=== PATIENT | male | born 1945 | race Caucasian/White ===

== ENCOUNTER 2017-07-11 11:06 | Outpatient (CLI) | payer MEDICARE, BC ==
[~2017-07-11 11:06] MED LIST: ALLO100T25 PO; CALC-855 PO; CALC0.5C2 PO; CHOL3000 PO; CYAN100070 SQ; DAPT500V2 IV; DULO-31 PO; FLAX100031 PO; FLO0.4C PO; FOLI-43 PO; GLUC-133 PO; LIDO1.8C TOP; LIDO700A32; LIDOCAINE; LIPA1CAP18 PO; LORA-641 PO; MIDO10TA PO; MULT-1074 PO; MYCO360T PO; OMEP-84 PO; OXYC-658 PO; PRED10TA PO; QUELT PO; ROPI0.253 PO; SOLI5TAB2 PO; TEST200V10 IM
== END 2017-07-11 23:59 | disposition home or self-care (01) ==
LOC: RAD 11:06
PROVIDERS: ATTEND Family Medicine
DX: N40.1 Benign prostatic hyperplasia with lower urinary tract symptoms (principal); R50.9 Fever, unspecified; N18.9 Chronic kidney disease, unspecified; Z87.891 Personal history of nicotine dependence
CPT/HCPCS: 76856

== ENCOUNTER 2018-11-12 13:49 | Inpatient (IN) | payer MEDICARE, BC ==
[~2018-11-12] VITALS: Ht 172.7 cm; Wt 78.5 kg
[~2018-11-12 13:49] MED LIST changes: +DEXTROSE 5% IV SCH; -ROPI0.253 PO; +ROPI0.2534 PO; +SODIUM BICARBONATE IV SCH; +WATER IV SCH
[2018-11-12] MEDS ORDERED: normal saline 1000ml 1,000 ML IV SCH (15:27)
[2018-11-12] MEDS ORDERED: magnesium Cl slow-release 64mg tablet PO PRN (15:30)
[2018-11-12] MEDS ORDERED: linezolid 600mg/300ml PREMIX 300 ML IV SCH ×4 (15:30→20:00)
[2018-11-12] MEDS ORDERED: bisacodyl 10mg suppository rectal RC PRN (15:30)
[2018-11-12] MEDS ORDERED: HYDROcodone/acetaminophen 5mg/325mg tablet PO PRN (15:30)
[2018-11-12] MEDS ORDERED: acetaminophen 325mg tablet PO PRN (15:30)
[2018-11-12] MEDS ORDERED: magnesium 4gm in 100ml NS 100 ML IV PRN (15:30)
[2018-11-12] MEDS ORDERED: magnesium hydroxide 30ml (MOM) UD suspension PO PRN (15:30)
[2018-11-12] MEDS ORDERED: mag hydrox/Alum hydrox/simeth 30ml oral suspension PO PRN (15:30)
[2018-11-12] MEDS ORDERED: ondansetron/PF 4mg/2ml inj IV PRN (15:30)
[2018-11-12] MEDS ORDERED: potassium Cl 40MEQ/NS 500ml 500 ML IV PRN (15:30)
[2018-11-12] MEDS ORDERED: potassium Cl 20 mEq SR tablet PO PRN ×2 (15:30)
[2018-11-12] MEDS ORDERED: diphenhydrAMINE 25mg capsule PO PRN (15:30)
[2018-11-12] MEDS ORDERED: magnesium 2GM in 50ml NS 50 ML IV PRN (15:30)
--- NOTE | 2018-11-12 15:49 | NUR ---
Dr. Cota to see patient
[2018-11-12 16:41] LABS: ALANINE AMINOTRANSFERASE 31 U/L (12-78); ALBUMIN 2.9 G/DL (3.4-5.0); ALBUMIN/GLOBULIN RATIO 0.7 (1.1-1.5); ALKALINE PHOSPHATASE 100 IU/L (46-116); ANION GAP 17 (8-16); ASPARTATE AMINO TRANSFERASE 24 U/L (10-37); BILIRUBIN,TOTAL 1.1 MG/DL (0.1-1.0); BLOOD UREA NITROGEN 90 MG/DL (7-18); BUN/CREATININE RATIO 14.3 (5.4-32.0); CALCIUM 8.5 MG/DL (8.5-10.1); CHLORIDE 92 MMOL/L (99-107); CREATININE 6.29 MG/DL (0.60-1.10); GLUCOSE 104 MG/DL (70-104); PHOSPHORUS 3.1 MG/DL (2.3-4.5); POTASSIUM 3.1 MMOL/L (3.5-5.1); SODIUM 126 MMOL/L (135-145); TOTAL CARBON DIOXIDE 17.2 MMOL/L (24-32); TOTAL PROTEIN 7.2 G/DL (6.4-8.2); eGFR 9 ML/MIN
[2018-11-12 16:44] LABS: HEMOGLOBIN A1C 4.7 % (4.5-6.2)
[2018-11-12 16:58] LABS: PARTIAL THROMBOPLASTIN TIME 31 SECONDS (22-32)
[2018-11-12 17:26] LABS: BASOPHILS % (AUTO) 0.1 % (0-1); EOSINOPHILS % (AUTO) 0.4 % (0-6); HEMATOCRIT 28.3 % (42.0-52.0); HEMOGLOBIN 9.5 g/dl (14.0-17.9); LYMPHOCYTES # (AUTO) 0.2 X10'3 (1.1-4.8); LYMPHOCYTES % (AUTO) 2.1 % (21-51); MEAN CORPUSCULAR HEMOGLOBIN 29.2 PG (27.0-31.0); MEAN CORPUSCULAR HGB CONC 33.5 g/dL (33.0-36.5); MEAN CORPUSCULAR VOLUME 87.4 FL (78-98); MONOCYTES # (AUTO) 0.5 X10'3 (0-0.9); MONOCYTES % (AUTO) 6.2 % (2-12); NEUTROPHILS # (AUTO) 7.2 X10'3 (1.8-7.7); NEUTROPHILS % (AUTO) 91.2 % (42-75); PLATELET COUNT 151 X10'3 (140-440); RED BLOOD COUNT 3.24 X10'6 (4.70-6.10); RED CELL DISTRIBUTION WIDTH 15.9 % (11.5-14.5); WHITE BLOOD COUNT 7.9 X10'3 (4.5-11.0)
[2018-11-12 18:00] VITALS: BP 110/63
--- NOTE | 2018-11-12 18:26 | NUR ---
Patient in room [facility] 4007. I have received report from HUYEN Bruno and had the opportunity to ask questions and assume patient care.
[2018-11-12] MEDS: docusate sod 100mg capsule PO SCH (19:53)
[2018-11-12] MEDS: heparin, porcine 5000 units/ml vial SQ SCH (19:55)
[2018-11-12] MEDS: midodrine 5mg tablet PO SCH (21:00)
[2018-11-12] MEDS ORDERED: calcitriol 0.25mcg capsule PO SCH ×2 (21:00→22:02)
[2018-11-12] MEDS: SODIUM BICARBONATE IV SCH (21:59)
[2018-11-12] MEDS: DEXTROSE 5% IV SCH (21:59)
[2018-11-12] MEDS: WATER IV SCH (21:59)
[2018-11-12 22:00] VITALS: BP 154/83
[2018-11-12] MEDS: mycophenolate sod SR tablet 180 MG TABLET.DR PO SCH (22:03)
[2018-11-12] MEDS: calcitriol 0.25mcg capsule PO SCH (22:47)
[2018-11-12] MEDS: potassium CL 10mEq/100ml bag 100 ML IV PRN ×2 (22:47→23:57)
[2018-11-12 23:07] LABS: UA COLLECTION TYPE NON-SPECIFIED
[2018-11-12 23:08] LABS: CLARITY,URINE CLEAR (Clear); COLOR,URINE YELLOW (Yellow); GLUCOSE, URINE NEGATIVE (Neg); KETONES,URINE NEGATIVE (Neg); LEUKOCYTE ESTERASE ,URINE SMALL (Neg); NITRITES, URINE NEGATIVE (Neg); OCCULT BLOOD,URINE SMALL (Neg); PROTEIN,URINE 100 mg/dl (Neg); UROBILINOGEN,URINE 0.2 E.U/dL (0.2-1.0)
[2018-11-12 23:22] LABS: WBC,URINE 50-100 /HPF (0-4)
[2018-11-12 23:23] LABS: BACTERIA,URINE 3+ /HPF (Neg)
[2018-11-12 23:25] LABS: AMORPHOUS URATES 1+; MUCUS STRANDS FEW /LPF (Neg); RENAL CELLS, URINE FEW /HPF; SQUAMOUS EPITHELIAL CELL,UR FEW /LPF (FEW); TRANSITIONAL EPI CELLS,URINE FEW /HPF; WBC CLUMPS,URINE FEW /HPF (NEGATIVE)
[2018-11-12 23:26] LABS: HYALINE CASTS 0-3 /LPF (NEGATIVE)
[2018-11-13] MEDS: potassium CL 10mEq/100ml bag 100 ML IV PRN ×2 (01:21→02:30)
[2018-11-13] MEDS: WATER IV SCH ×2 (02:33→08:12)
[2018-11-13] MEDS: SODIUM BICARBONATE IV SCH ×2 (02:33→08:12)
[2018-11-13] MEDS: DEXTROSE 5% IV SCH ×2 (02:33→08:12)
[2018-11-13] MEDS: linezolid 600mg/300ml PREMIX 300 ML IV SCH ×2 (04:46→17:26)
--- NOTE | 2018-11-13 05:02 | NUR ---
Patient in room [facility]TH[facility] 4007. I have received report from HUYEN Boyer and had the opportunity to ask questions and assume patient care.
[2018-11-13 06:00] VITALS: BP 117/51
--- NOTE | 2018-11-13 06:10 | NUR ---
Problems reprioritized. Patient report given, questions answered & plan of care reviewed with HUYEN Ramirez.
[2018-11-13 06:20] LABS: BASOPHILS % (AUTO) 0.2 % (0-1); HEMOGLOBIN 8.8 g/dl (14.0-17.9); LYMPHOCYTES # (AUTO) 0.1 X10'3 (1.1-4.8); MEAN CORPUSCULAR HEMOGLOBIN 29.3 PG (27.0-31.0); MEAN PLATELET VOLUME 8.3 FL (7.4-10.4)
[2018-11-13 06:22] LABS: EOSINOPHILS % (AUTO) 0.6 % (0-6); LYMPHOCYTES % (AUTO) 1.3 % (21-51); MEAN CORPUSCULAR HGB CONC 33.8 g/dL (33.0-36.5); MEAN CORPUSCULAR VOLUME 86.7 FL (78-98); MONOCYTES # (AUTO) 0.5 X10'3 (0-0.9); MONOCYTES % (AUTO) 8.2 % (2-12); NEUTROPHILS % (AUTO) 89.7 % (42-75); PLATELET COUNT 137 X10'3 (140-440); RED CELL DISTRIBUTION WIDTH 15.6 % (11.5-14.5); WHITE BLOOD COUNT 6.6 X10'3 (4.5-11.0)
[2018-11-13 06:31] LABS: ALBUMIN 2.4 G/DL (3.4-5.0); ANION GAP 12 (8-16); BLOOD UREA NITROGEN 88 MG/DL (7-18); BUN/CREATININE RATIO 14.5 (5.4-32.0); CALCIUM 8.2 MG/DL (8.5-10.1); CHLORIDE 92 MMOL/L (99-107); CREATININE 6.07 MG/DL (0.60-1.10); GLUCOSE 168 MG/DL (70-104); PHOSPHORUS 2.8 MG/DL (2.3-4.5); POTASSIUM 3.3 MMOL/L (3.5-5.1); SODIUM 124 MMOL/L (135-145); TOTAL CARBON DIOXIDE 20.2 MMOL/L (24-32); eGFR 9 ML/MIN
[2018-11-13] MEDS: loratadine 10mg tablet PO SCH (07:23)
[2018-11-13] MEDS: calcium carbonate/vitamin D3 tablet PO SCH ×2 (07:26→20:46)
[2018-11-13] MEDS: tamsulosin 0.4mg capsule PO SCH (07:26)
[2018-11-13] MEDS: mycophenolate sod SR tablet 180 MG TABLET.DR PO SCH ×2 (07:26→20:46)
[2018-11-13] MEDS: prednisone 10mg tablet PO SCH (07:30)
[2018-11-13] MEDS: pantoprazole 40mg Tablet.DR PO SCH (07:30)
[2018-11-13] MEDS: multivitamins, therapeutics tablet PO SCH (07:31)
[2018-11-13] MEDS: vitamin D (cholecalciferol) 1,000 unit tablet PO SCH (07:31)
[2018-11-13] MEDS: docusate sod 100mg capsule PO SCH ×2 (07:45→20:45)
[2018-11-13] MEDS: midodrine 5mg tablet PO SCH ×3 (07:45→20:51)
--- NOTE | 2018-11-13 07:45 | NUR ---
Call from Dr Cota, ordered stat renal us=concern for declining renal function, wants post void residual, also received orders to dc electrolyte protocol and give pt one dose K 20 meq. Paged US tech will wait for response
[2018-11-13] MEDS: heparin, porcine 5000 units/ml vial SQ SCH ×2 (07:47→20:49)
[2018-11-13] MEDS ORDERED: K and/or MAG REPLACEMENT MC SCH (08:00)
[2018-11-13] MEDS ORDERED: LIPASE/PROTEASE/AMYLASE 4,200 unit CAPSULE.DR PO SCH (08:00)
[2018-11-13] MEDS ORDERED: non-formulary drug (Gluc 2KCL/Chondr/Coll Hy/Hy Ac (Glucosamine & Chondroitin Cap) 1 EACH) PO SCH (08:00)
[2018-11-13] MEDS ORDERED: ROPINIRole 0.25mg tablet PO SCH (08:00)
[2018-11-13] MEDS ORDERED: non-formulary drug (Flaxseed Oil (Flax Seed Oil) 1,000 MG) PO SCH (08:00)
--- NOTE | 2018-11-13 08:15 | NUR ---
Page to US tech re STAT renal US: Hi, 4000 back to bed and ready for US at this time
[2018-11-13] MEDS ORDERED: potassium Cl 20 mEq SR tablet PO ONE (08:20)
[2018-11-13] MEDS: LIPASE/PROTEASE/AMYLASE 4,200 unit CAPSULE.DR PO SCH ×2 (08:30→20:00)
[2018-11-13] MEDS: allopurinol 100mg tablet PO SCH (10:05)
[2018-11-13] MEDS: sodium bicarbonate (8.4%) inj. 75 MEQ in dextrose 5% water 500ml 500 ML IV SCH ×2 (14:07→20:41)
[2018-11-13 15:30] VITALS: BP 110/60
--- NOTE | 2018-11-13 16:00 | NUR ---
Rikki ed consult: Attempted visit with pt at bedside however pt was sleeping and did not wake with verbal cues. Written low tyramine nutrition therapy education left at patient's bedside with RD contact information. Will remain available. Addendum: 11/13/18 at [address] Amended: Links added.
[2018-11-13 18:00] VITALS: BP 100/61
--- NOTE | 2018-11-13 19:00 | NUR ---
Patient in room [facility]TH[facility] 4007. I have received report from Ashley MATSON and had the opportunity to ask questions and assume patient care.
[2018-11-13] MEDS: calcitriol 0.25mcg capsule PO SCH (20:51)
[2018-11-13] MEDS: ROPINIRole 0.25mg tablet PO SCH (20:52)
[2018-11-13 22:00] VITALS: BP 104/64
[2018-11-14] MEDS: linezolid 600mg/300ml PREMIX 300 ML IV SCH (04:25)
[2018-11-14 06:00] VITALS: BP 107/63
[2018-11-14 06:26] LABS: BASOPHILS % (AUTO) 0.1 % (0-1); EOSINOPHILS % (AUTO) 0.6 % (0-6); HEMATOCRIT 23.6 % (42.0-52.0); HEMOGLOBIN 7.9 g/dl (14.0-17.9); LYMPHOCYTES # (AUTO) 0.2 X10'3 (1.1-4.8); LYMPHOCYTES % (AUTO) 2.3 % (21-51); MEAN CORPUSCULAR HEMOGLOBIN 29.2 PG (27.0-31.0); MEAN CORPUSCULAR HGB CONC 33.4 g/dL (33.0-36.5); MEAN CORPUSCULAR VOLUME 87.4 FL (78-98); MEAN PLATELET VOLUME 8.5 FL (7.4-10.4); MONOCYTES # (AUTO) 0.6 X10'3 (0-0.9); MONOCYTES % (AUTO) 8.6 % (2-12); NEUTROPHILS # (AUTO) 6.2 X10'3 (1.8-7.7); NEUTROPHILS % (AUTO) 88.4 % (42-75); PLATELET COUNT 126 X10'3 (140-440); RED CELL DISTRIBUTION WIDTH 15.7 % (11.5-14.5); WHITE BLOOD COUNT 7.1 X10'3 (4.5-11.0)
[2018-11-14 06:30] LABS: ALBUMIN 2.1 G/DL (3.4-5.0); ANION GAP 9 (8-16); BLOOD UREA NITROGEN 80 MG/DL (7-18); BUN/CREATININE RATIO 15.5 (5.4-32.0); CALCIUM 7.9 MG/DL (8.5-10.1); CHLORIDE 92 MMOL/L (99-107); CREATININE 5.17 MG/DL (0.60-1.10); GLUCOSE 145 MG/DL (70-104); MAGNESIUM 2.5 MG/DL (1.5-2.4); PHOSPHORUS 4.1 MG/DL (2.3-4.5); SODIUM 127 MMOL/L (135-145); TOTAL CARBON DIOXIDE 26.3 MMOL/L (24-32); eGFR 11 ML/MIN
[2018-11-14 06:36] LABS: POTASSIUM 2.7 MMOL/L (3.5-5.1)
--- NOTE | 2018-11-14 06:48 | NUR ---
received critical K 2.7 will contact oncoming pressure welder
--- NOTE | 2018-11-14 07:02 | NUR ---
attempt to call Lorrie, she states she is not on today due to illness attempt to call Tomeka, no answer, LM to call me back re a critical value
[2018-11-14] MEDS ORDERED: potassium Cl 20 mEq SR tablet PO ONE (07:15)
[2018-11-14] MEDS: sodium bicarbonate (8.4%) inj. 75 MEQ in dextrose 5% water 500ml 500 ML IV SCH ×3 (07:58)
[2018-11-14] MEDS: tamsulosin 0.4mg capsule PO SCH (07:59)
[2018-11-14] MEDS: mycophenolate sod SR tablet 180 MG TABLET.DR PO SCH ×2 (07:59→20:11)
[2018-11-14] MEDS: loratadine 10mg tablet PO SCH (07:59)
[2018-11-14] MEDS: calcium carbonate/vitamin D3 tablet PO SCH ×2 (07:59→20:11)
[2018-11-14] MEDS: docusate sod 100mg capsule PO SCH ×2 (07:59→20:11)
[2018-11-14] MEDS: midodrine 5mg tablet PO SCH ×3 (08:00→20:13)
[2018-11-14] MEDS: ROPINIRole 0.25mg tablet PO SCH ×2 (08:00→20:13)
[2018-11-14] MEDS: prednisone 10mg tablet PO SCH (08:00)
[2018-11-14] MEDS: multivitamins, therapeutics tablet PO SCH (08:01)
[2018-11-14] MEDS: pantoprazole 40mg Tablet.DR PO SCH (08:01)
[2018-11-14] MEDS: vitamin D (cholecalciferol) 1,000 unit tablet PO SCH (08:01)
[2018-11-14] MEDS: heparin, porcine 5000 units/ml vial SQ SCH ×2 (08:02→20:16)
[2018-11-14 10:00] VITALS: BP 122/64
[2018-11-14] MEDS: allopurinol 100mg tablet PO SCH (10:01)
[2018-11-14] MEDS: LIPASE/PROTEASE/AMYLASE 4,200 unit CAPSULE.DR PO SCH ×2 (10:02→20:00)
[2018-11-14] MEDS ORDERED: epoetin 20,000 units/ml inj SQ ONE (12:05)
[2018-11-14] MEDS ORDERED: aztreonam inj. 1,000 MG in normal saline 100ml IV soln 100 ML IV ONE (12:05)
[2018-11-14] MEDS: Potassium Cl inj 20 MEQ in normal saline 1000ml 990 ML IV SCH (13:33)
[2018-11-14 18:00] VITALS: BP 99/50
--- NOTE | 2018-11-14 19:00 | NUR ---
Patient in room [facility]TH[facility] 4007. I have received report from Ashley MATSON and had the opportunity to ask questions and assume patient care.
[2018-11-14] MEDS: aztreonam inj. 1,000 MG in normal saline 100ml IV soln 100 ML IV SCH (20:08)
[2018-11-14] MEDS: linezolid 600mg tablet PO SCH (20:11)
[2018-11-14] MEDS: calcitriol 0.25mcg capsule PO SCH (20:12)
[2018-11-14 21:22] LABS: FERRITIN 1397 NG/ML (26-388)
[2018-11-14 21:40] LABS: % IRON SATURATION 43 % (11-46); IRON 85 UG/DL (53-167); TOTAL IRON BINDING CAPACITY 199 UG/DL (259-388)
[2018-11-14 22:00] VITALS: BP 126/65
[2018-11-15] MEDS: Potassium Cl inj 20 MEQ in normal saline 1000ml 990 ML IV SCH ×3 (00:40→20:44)
[2018-11-15 06:00] VITALS: BP 106/54
--- NOTE | 2018-11-15 06:07 | NUR ---
received report from marianela spence
[2018-11-15 07:13] LABS: EOSINOPHILS # (AUTO) 0.1 X10'3 (0-0.9); EOSINOPHILS % (AUTO) 0.7 % (0-6); MONOCYTES # (AUTO) 0.6 X10'3 (0-0.9)
[2018-11-15 07:14] LABS: BASOPHILS % (AUTO) 0.3 % (0-1); HEMATOCRIT 28.2 % (42.0-52.0); HEMOGLOBIN 9.5 g/dl (14.0-17.9); LYMPHOCYTES # (AUTO) 0.4 X10'3 (1.1-4.8); LYMPHOCYTES % (AUTO) 4.2 % (21-51); MEAN CORPUSCULAR HEMOGLOBIN 29.3 PG (27.0-31.0); MEAN CORPUSCULAR HGB CONC 33.8 g/dL (33.0-36.5); MEAN CORPUSCULAR VOLUME 86.4 FL (78-98); MONOCYTES % (AUTO) 6.7 % (2-12); NEUTROPHILS # (AUTO) 8.1 X10'3 (1.8-7.7); NEUTROPHILS % (AUTO) 88.1 % (42-75); PLATELET COUNT 198 X10'3 (140-440); RED BLOOD COUNT 3.26 X10'6 (4.70-6.10); RED CELL DISTRIBUTION WIDTH 16.1 % (11.5-14.5); WHITE BLOOD COUNT 9.2 X10'3 (4.5-11.0)
[2018-11-15 07:29] LABS: ALBUMIN 2.3 G/DL (3.4-5.0); ANION GAP 10 (8-16); BLOOD UREA NITROGEN 73 MG/DL (7-18); BUN/CREATININE RATIO 16.1 (5.4-32.0); CALCIUM 8.4 MG/DL (8.5-10.1); CHLORIDE 100 MMOL/L (99-107); CREATININE 4.54 MG/DL (0.60-1.10); GLUCOSE 94 MG/DL (70-104); MAGNESIUM 2.3 MG/DL (1.5-2.4); PHOSPHORUS 3.7 MG/DL (2.3-4.5); POTASSIUM 3.2 MMOL/L (3.5-5.1); SODIUM 136 MMOL/L (135-145); TOTAL CARBON DIOXIDE 25.6 MMOL/L (24-32); eGFR 13 ML/MIN
[2018-11-15 07:52] LABS: ANISOCYTOSIS 1+; PLATELET ESTIMATE NORMAL; POIKILOCYTOSIS FEW; SCHISTOCYTES FEW
[2018-11-15 07:53] LABS: ELLIPTOCYTES FEW
[2018-11-15] MEDS: HYDROcodone/acetaminophen 10/325mg tab PO PRN ×4 (08:15→20:47)
[2018-11-15] MEDS: ROPINIRole 0.25mg tablet PO SCH ×2 (08:19→20:46)
[2018-11-15] MEDS: loratadine 10mg tablet PO SCH (08:19)
[2018-11-15] MEDS: mycophenolate sod SR tablet 180 MG TABLET.DR PO SCH ×2 (08:20→20:44)
[2018-11-15] MEDS: tamsulosin 0.4mg capsule PO SCH (08:21)
[2018-11-15] MEDS: docusate sod 100mg capsule PO SCH ×2 (08:21→20:44)
[2018-11-15] MEDS: calcium carbonate/vitamin D3 tablet PO SCH ×2 (08:21→20:45)
[2018-11-15] MEDS: multivitamins, therapeutics tablet PO SCH (08:22)
[2018-11-15] MEDS: pantoprazole 40mg Tablet.DR PO SCH (08:22)
[2018-11-15] MEDS: linezolid 600mg tablet PO SCH ×2 (08:22→22:06)
[2018-11-15] MEDS: allopurinol 100mg tablet PO SCH (08:22)
[2018-11-15] MEDS: prednisone 10mg tablet PO SCH (08:22)
[2018-11-15] MEDS: midodrine 5mg tablet PO SCH ×3 (08:23→20:56)
[2018-11-15] MEDS: vitamin D (cholecalciferol) 1,000 unit tablet PO SCH (08:23)
[2018-11-15] MEDS: LIPASE/PROTEASE/AMYLASE 4,200 unit CAPSULE.DR PO SCH ×2 (08:24→20:45)
[2018-11-15] MEDS: heparin, porcine 5000 units/ml vial SQ SCH ×2 (08:29→20:45)
[2018-11-15] MEDS: aztreonam inj. 1,000 MG in normal saline 100ml IV soln 100 ML IV SCH ×2 (08:31→20:44)
[2018-11-15 10:00] VITALS: BP 112/53
--- NOTE | 2018-11-15 18:12 | NUR ---
gave report to derrell sanders rn
--- NOTE | 2018-11-15 18:59 | NUR ---
Patient in room [facility]TH[facility] 4007. I have received report from HUYEN Cavazos and had the opportunity to ask questions and assume patient care.
[2018-11-15 19:00] VITALS: BP 133/70
[2018-11-15] MEDS: calcitriol 0.25mcg capsule PO SCH (20:45)
[2018-11-16] MEDS: Potassium Cl inj 20 MEQ in normal saline 1000ml 990 ML IV SCH ×2 (04:05→14:05)
[2018-11-16 06:10] LABS: EOSINOPHILS # (AUTO) 0.1 X10'3 (0-0.9); LYMPHOCYTES # (AUTO) 0.5 X10'3 (1.1-4.8); MEAN CORPUSCULAR HEMOGLOBIN 29.1 PG (27.0-31.0)
[2018-11-16 06:12] LABS: BASOPHILS # (AUTO) 0.1 X10'3 (0-0.2); BASOPHILS % (AUTO) 0.6 % (0-1); EOSINOPHILS % (AUTO) 1.3 % (0-6); HEMATOCRIT 27.5 % (42.0-52.0); LYMPHOCYTES % (AUTO) 5.6 % (21-51); MEAN CORPUSCULAR HGB CONC 32.7 g/dL (33.0-36.5); MEAN PLATELET VOLUME 7.7 FL (7.4-10.4); MONOCYTES # (AUTO) 0.4 X10'3 (0-0.9); NEUTROPHILS # (AUTO) 8.1 X10'3 (1.8-7.7); NEUTROPHILS % (AUTO) 88.5 % (42-75); PLATELET COUNT 193 X10'3 (140-440); RED BLOOD COUNT 3.09 X10'6 (4.70-6.10); RED CELL DISTRIBUTION WIDTH 16.4 % (11.5-14.5); WHITE BLOOD COUNT 9.1 X10'3 (4.5-11.0)
--- NOTE | 2018-11-16 06:21 | NUR ---
Problems reprioritized. Patient report given, questions answered & plan of care reviewed with HUYEN Eric.
[2018-11-16 06:36] VITALS: BP 106/55
[2018-11-16 06:37] LABS: ALBUMIN 2.2 G/DL (3.4-5.0); ANION GAP 11 (8-16); BLOOD UREA NITROGEN 64 MG/DL (7-18); BUN/CREATININE RATIO 14.6 (5.4-32.0); CALCIUM 8.2 MG/DL (8.5-10.1); CHLORIDE 101 MMOL/L (99-107); CREATININE 4.38 MG/DL (0.60-1.10); GLUCOSE 111 MG/DL (70-104); MAGNESIUM 1.9 MG/DL (1.5-2.4); PHOSPHORUS 4.1 MG/DL (2.3-4.5); POTASSIUM 3.8 MMOL/L (3.5-5.1); SODIUM 135 MMOL/L (135-145); TOTAL CARBON DIOXIDE 23.1 MMOL/L (24-32); eGFR 13 ML/MIN
[2018-11-16] MEDS: calcium carbonate/vitamin D3 tablet PO SCH ×2 (07:41→21:19)
[2018-11-16] MEDS: pantoprazole 40mg Tablet.DR PO SCH (07:41)
[2018-11-16] MEDS: allopurinol 100mg tablet PO SCH (07:41)
[2018-11-16] MEDS: aztreonam inj. 1,000 MG in normal saline 100ml IV soln 100 ML IV SCH (07:41)
[2018-11-16] MEDS: ROPINIRole 0.25mg tablet PO SCH ×2 (07:41→21:20)
[2018-11-16] MEDS: midodrine 5mg tablet PO SCH ×3 (07:41→21:00)
[2018-11-16] MEDS: vitamin D (cholecalciferol) 1,000 unit tablet PO SCH (07:41)
[2018-11-16] MEDS: prednisone 10mg tablet PO SCH (07:41)
[2018-11-16] MEDS: mycophenolate sod SR tablet 180 MG TABLET.DR PO SCH ×2 (07:41→21:20)
[2018-11-16] MEDS: multivitamins, therapeutics tablet PO SCH (07:41)
[2018-11-16] MEDS: linezolid 600mg tablet PO SCH ×2 (07:41→21:19)
[2018-11-16] MEDS: tamsulosin 0.4mg capsule PO SCH (07:41)
[2018-11-16] MEDS: loratadine 10mg tablet PO SCH (07:41)
[2018-11-16] MEDS: docusate sod 100mg capsule PO SCH ×2 (07:41→20:00)
[2018-11-16] MEDS: LIPASE/PROTEASE/AMYLASE 4,200 unit CAPSULE.DR PO SCH ×2 (07:42→16:58)
[2018-11-16] MEDS: heparin, porcine 5000 units/ml vial SQ SCH ×2 (07:50→21:22)
[2018-11-16 12:22] VITALS: BP 106/60
[2018-11-16] MEDS: aztreonam inj. 500 MG in normal saline 100ml IV soln 100 ML IV SCH (17:00)
[2018-11-16 18:00] VITALS: BP 116/67
--- NOTE | 2018-11-16 18:30 | NUR ---
Patient in room [facility]TH[facility] 4007. I have received report from HUYEN Eric and had the opportunity to ask questions and assume patient care. Patient eating dinner at this time. at bedside. States that his neck/back pain is "better today."
[2018-11-16] MEDS: calcitriol 0.25mcg capsule PO SCH (21:20)
[2018-11-16] MEDS: tacrolimus anhydrous 1mg capsule PO SCH (21:20)
[2018-11-16 22:00] VITALS: BP 100/53
[2018-11-17] MEDS: Potassium Cl inj 20 MEQ in normal saline 1000ml 990 ML IV SCH ×3 (00:10→20:05)
[2018-11-17] MEDS: aztreonam inj. 500 MG in normal saline 100ml IV soln 100 ML IV SCH ×3 (00:10→16:38)
[2018-11-17 06:12] LABS: BASOPHILS % (AUTO) 0.3 % (0-1); EOSINOPHILS # (AUTO) 0.1 X10'3 (0-0.9); EOSINOPHILS % (AUTO) 0.9 % (0-6); HEMATOCRIT 25.6 % (42.0-52.0); HEMOGLOBIN 8.2 g/dl (14.0-17.9); LYMPHOCYTES # (AUTO) 0.5 X10'3 (1.1-4.8); LYMPHOCYTES % (AUTO) 5.9 % (21-51); MEAN CORPUSCULAR HEMOGLOBIN 28.7 PG (27.0-31.0); MEAN CORPUSCULAR VOLUME 89.8 FL (78-98); MEAN PLATELET VOLUME 7.4 FL (7.4-10.4); MONOCYTES # (AUTO) 0.5 X10'3 (0-0.9); MONOCYTES % (AUTO) 5.4 % (2-12); NEUTROPHILS # (AUTO) 8.1 X10'3 (1.8-7.7); NEUTROPHILS % (AUTO) 87.5 % (42-75); PLATELET COUNT 197 X10'3 (140-440); RED BLOOD COUNT 2.85 X10'6 (4.70-6.10); RED CELL DISTRIBUTION WIDTH 16.7 % (11.5-14.5); WHITE BLOOD COUNT 9.2 X10'3 (4.5-11.0)
--- NOTE | 2018-11-17 06:24 | NUR ---
Problems reprioritized. Patient report given, questions answered & plan of care reviewed with .
[2018-11-17 06:31] VITALS: BP 101/52
[2018-11-17 06:34] LABS: ALBUMIN 1.9 G/DL (3.4-5.0); ANION GAP 11 (8-16); BLOOD UREA NITROGEN 65 MG/DL (7-18); BUN/CREATININE RATIO 15.6 (5.4-32.0); CALCIUM 8.2 MG/DL (8.5-10.1); CHLORIDE 109 MMOL/L (99-107); CREATININE 4.16 MG/DL (0.60-1.10); GLUCOSE 101 MG/DL (70-104); MAGNESIUM 1.6 MG/DL (1.5-2.4); PHOSPHORUS 3.8 MG/DL (2.3-4.5); POTASSIUM 4.4 MMOL/L (3.5-5.1); SODIUM 141 MMOL/L (135-145); TOTAL CARBON DIOXIDE 21.5 MMOL/L (24-32); eGFR 14 ML/MIN
[2018-11-17] MEDS: LIPASE/PROTEASE/AMYLASE 4,200 unit CAPSULE.DR PO SCH ×2 (07:13→17:08)
[2018-11-17] MEDS: vitamin D (cholecalciferol) 1,000 unit tablet PO SCH (07:13)
[2018-11-17] MEDS: pantoprazole 40mg Tablet.DR PO SCH (07:13)
[2018-11-17] MEDS: docusate sod 100mg capsule PO SCH ×2 (07:13→20:00)
[2018-11-17] MEDS: ROPINIRole 0.25mg tablet PO SCH ×2 (07:13→20:56)
[2018-11-17] MEDS: prednisone 10mg tablet PO SCH (07:13)
[2018-11-17] MEDS: linezolid 600mg tablet PO SCH ×2 (07:13→20:56)
[2018-11-17] MEDS: mycophenolate sod SR tablet 180 MG TABLET.DR PO SCH ×2 (07:13→20:56)
[2018-11-17] MEDS: midodrine 5mg tablet PO SCH ×3 (07:14→20:57)
[2018-11-17] MEDS: tamsulosin 0.4mg capsule PO SCH (07:14)
[2018-11-17] MEDS: calcium carbonate/vitamin D3 tablet PO SCH ×2 (07:14→20:56)
[2018-11-17] MEDS: loratadine 10mg tablet PO SCH (07:14)
[2018-11-17] MEDS: heparin, porcine 5000 units/ml vial SQ SCH ×2 (07:14→20:57)
[2018-11-17] MEDS: multivitamins, therapeutics tablet PO SCH (07:14)
[2018-11-17] MEDS: allopurinol 100mg tablet PO SCH (07:18)
[2018-11-17] MEDS: tacrolimus anhydrous 1mg capsule PO SCH ×3 (07:18→20:56)
[2018-11-17 11:46] VITALS: BP 122/65
--- NOTE | 2018-11-17 12:48 | NUR ---
Initial: Pt admit w/ acute prostatitis and DOC hx kidney transplant. PO 100% renal diet meeting needs. In hx says 6 abdominal surgeries "18 feet intestines removed" 30 years ago; highly unlikely given pt tolerating PO diet and would likely have short bowel syndrome w/ such a drastic GI resection hx and would not be able to tolerate PO. 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 At this time given PO diet tolerance w/ no GI symptoms noted as well as current PO hx pt has no nutrition concerns. Will continue to monitor. Rec: 1. continue renal diet per MD 2. wt per rx Addendum: 11/17/18 at [address] Amended: Links added.
--- NOTE | 2018-11-17 15:50 | NUR ---
F/u: Pt/ request RD visit for renal diet guidelines. Pt hx renal transplant and not on HD. reports pt does not have elevated electrolyte foods mainly at home and eats leaner cuts of meats; watches added seasonings and does not use any herbs that can thin the blood. Pt would like more portions; RD d/w dietary to send double proteins TIDWM. Addendum: 11/17/18 at [address] Amended: Links added.
[2018-11-17 18:00] VITALS: BP 111/59
--- NOTE | 2018-11-17 18:38 | NUR ---
Patient in room [facility]TH[facility] 4007. I have received report from HUYEN Eric and had the opportunity to ask questions and assume patient care. Patient finishing up with dinner at this time.
[2018-11-17] MEDS: calcitriol 0.25mcg capsule PO SCH (21:00)
[2018-11-17 22:00] VITALS: BP 143/68
[2018-11-18] MEDS: aztreonam inj. 500 MG in normal saline 100ml IV soln 100 ML IV SCH ×3 (00:22→16:21)
--- NOTE | 2018-11-18 06:28 | NUR ---
Problems reprioritized. Patient report given, questions answered & plan of care reviewed with HUYEN Eric.
[2018-11-18 06:55] VITALS: BP 107/62
[2018-11-18] MEDS: normal saline 1000ml 1,000 ML IV SCH ×2 (06:59→16:21)
[2018-11-18] MEDS: LIPASE/PROTEASE/AMYLASE 4,200 unit CAPSULE.DR PO SCH ×2 (07:26→17:17)
[2018-11-18] MEDS: tacrolimus anhydrous 1mg capsule PO SCH ×2 (07:26→20:24)
[2018-11-18] MEDS: pantoprazole 40mg Tablet.DR PO SCH (07:27)
[2018-11-18] MEDS: multivitamins, therapeutics tablet PO SCH (07:27)
[2018-11-18] MEDS: heparin, porcine 5000 units/ml vial SQ SCH ×2 (07:27→20:30)
[2018-11-18] MEDS: loratadine 10mg tablet PO SCH (07:27)
[2018-11-18] MEDS: mycophenolate sod SR tablet 180 MG TABLET.DR PO SCH ×2 (07:27→20:24)
[2018-11-18] MEDS: ROPINIRole 0.25mg tablet PO SCH ×2 (07:27→21:38)
[2018-11-18] MEDS: linezolid 600mg tablet PO SCH ×2 (07:27→20:25)
[2018-11-18] MEDS: prednisone 10mg tablet PO SCH (07:27)
[2018-11-18] MEDS: tamsulosin 0.4mg capsule PO SCH (07:27)
[2018-11-18] MEDS: allopurinol 100mg tablet PO SCH (07:27)
[2018-11-18] MEDS: vitamin D (cholecalciferol) 1,000 unit tablet PO SCH (07:27)
[2018-11-18] MEDS: calcium carbonate/vitamin D3 tablet PO SCH ×2 (07:27→20:24)
[2018-11-18] MEDS: midodrine 5mg tablet PO SCH ×3 (07:28→21:00)
[2018-11-18] MEDS: docusate sod 100mg capsule PO SCH ×2 (07:28→20:00)
[2018-11-18 09:01] LABS: BASOPHILS % (AUTO) 0.2 % (0-1); EOSINOPHILS # (AUTO) 0.1 X10'3 (0-0.9); EOSINOPHILS % (AUTO) 0.8 % (0-6); HEMATOCRIT 29.7 % (42.0-52.0); HEMOGLOBIN 9.3 g/dl (14.0-17.9); LYMPHOCYTES # (AUTO) 0.6 X10'3 (1.1-4.8); LYMPHOCYTES % (AUTO) 6.3 % (21-51); MEAN CORPUSCULAR HEMOGLOBIN 28.9 PG (27.0-31.0); MEAN CORPUSCULAR HGB CONC 31.4 g/dL (33.0-36.5); MEAN PLATELET VOLUME 7.3 FL (7.4-10.4); MONOCYTES # (AUTO) 0.5 X10'3 (0-0.9); MONOCYTES % (AUTO) 5.4 % (2-12); NEUTROPHILS # (AUTO) 8.6 X10'3 (1.8-7.7); NEUTROPHILS % (AUTO) 87.3 % (42-75); PLATELET COUNT 225 X10'3 (140-440); RED BLOOD COUNT 3.22 X10'6 (4.70-6.10); RED CELL DISTRIBUTION WIDTH 17.3 % (11.5-14.5); WHITE BLOOD COUNT 9.9 X10'3 (4.5-11.0)
[2018-11-18 09:23] LABS: ALANINE AMINOTRANSFERASE 23 U/L (12-78); ALBUMIN 2.3 G/DL (3.4-5.0); ALBUMIN/GLOBULIN RATIO 0.7 (1.1-1.5); ALKALINE PHOSPHATASE 85 IU/L (46-116); ANION GAP 12 (8-16); ASPARTATE AMINO TRANSFERASE 12 U/L (10-37); BILIRUBIN,TOTAL 0.4 MG/DL (0.1-1.0); BLOOD UREA NITROGEN 60 MG/DL (7-18); BUN/CREATININE RATIO 16.1 (5.4-32.0); CALCIUM 8.8 MG/DL (8.5-10.1); CHLORIDE 109 MMOL/L (99-107); CREATININE 3.73 MG/DL (0.60-1.10); GLUCOSE 87 MG/DL (70-104); POTASSIUM 4.3 MMOL/L (3.5-5.1); SODIUM 140 MMOL/L (135-145); TOTAL CARBON DIOXIDE 19.4 MMOL/L (24-32); TOTAL PROTEIN 5.8 G/DL (6.4-8.2); eGFR 16 ML/MIN
[2018-11-18 10:30] VITALS: BP 113/53
[2018-11-18 18:00] VITALS: BP 132/53
[2018-11-18] MEDS: lactobacillus rhamnosus 10,000 MMU CELLS/CAPSULE PO SCH (20:24)
[2018-11-18] MEDS: calcitriol 0.25mcg capsule PO SCH (21:38)
[2018-11-18 22:00] VITALS: BP 143/77
[2018-11-19] MEDS: aztreonam inj. 500 MG in normal saline 100ml IV soln 100 ML IV SCH ×3 (01:06→17:06)
[2018-11-19] MEDS: normal saline 1000ml 1,000 ML IV SCH ×3 (04:28→22:15)
[2018-11-19] MEDS: HYDROcodone/acetaminophen 10/325mg tab PO PRN ×4 (04:34→17:50)
[2018-11-19 06:00] VITALS: BP 137/68
[2018-11-19] MEDS: ROPINIRole 0.25mg tablet PO SCH ×2 (08:00→21:11)
[2018-11-19] MEDS: docusate sod 100mg capsule PO SCH ×2 (08:00→21:02)
[2018-11-19] MEDS: LIPASE/PROTEASE/AMYLASE 4,200 unit CAPSULE.DR PO SCH ×2 (08:30→17:49)
[2018-11-19] MEDS: allopurinol 100mg tablet PO SCH (09:09)
[2018-11-19] MEDS: lactobacillus rhamnosus 10,000 MMU CELLS/CAPSULE PO SCH ×2 (09:09→21:03)
[2018-11-19] MEDS: multivitamins, therapeutics tablet PO SCH (09:09)
[2018-11-19] MEDS: mycophenolate sod SR tablet 180 MG TABLET.DR PO SCH ×2 (09:10→21:03)
[2018-11-19] MEDS: tamsulosin 0.4mg capsule PO SCH (09:10)
[2018-11-19] MEDS: linezolid 600mg tablet PO SCH ×2 (09:11→21:05)
[2018-11-19] MEDS: vitamin D (cholecalciferol) 1,000 unit tablet PO SCH (09:11)
[2018-11-19] MEDS: calcium carbonate/vitamin D3 tablet PO SCH ×2 (09:12→21:04)
[2018-11-19] MEDS: tacrolimus anhydrous 1mg capsule PO SCH ×2 (09:12→21:04)
[2018-11-19] MEDS: loratadine 10mg tablet PO SCH (09:12)
[2018-11-19] MEDS: prednisone 10mg tablet PO SCH (09:12)
[2018-11-19] MEDS: heparin, porcine 5000 units/ml vial SQ SCH ×2 (09:14→21:05)
[2018-11-19] MEDS: pantoprazole 40mg Tablet.DR PO SCH (09:19)
[2018-11-19] MEDS: midodrine 5mg tablet PO SCH ×3 (09:19→21:00)
[2018-11-19 09:23] LABS: BASOPHILS # (AUTO) 0.1 X10'3 (0-0.2); BASOPHILS % (AUTO) 1.1 % (0-1); EOSINOPHILS # (AUTO) 0.1 X10'3 (0-0.9); EOSINOPHILS % (AUTO) 1.3 % (0-6); HEMATOCRIT 26.2 % (42.0-52.0); HEMOGLOBIN 8.1 g/dl (14.0-17.9); LYMPHOCYTES # (AUTO) 0.6 X10'3 (1.1-4.8); LYMPHOCYTES % (AUTO) 8.5 % (21-51); MEAN CORPUSCULAR HEMOGLOBIN 28.7 PG (27.0-31.0); MEAN CORPUSCULAR VOLUME 92.7 FL (78-98); MEAN PLATELET VOLUME 7.1 FL (7.4-10.4); MONOCYTES # (AUTO) 0.4 X10'3 (0-0.9); MONOCYTES % (AUTO) 5.6 % (2-12); NEUTROPHILS # (AUTO) 5.6 X10'3 (1.8-7.7); NEUTROPHILS % (AUTO) 83.5 % (42-75); PLATELET COUNT 188 X10'3 (140-440); RED BLOOD COUNT 2.83 X10'6 (4.70-6.10); RED CELL DISTRIBUTION WIDTH 16.3 % (11.5-14.5); WHITE BLOOD COUNT 6.7 X10'3 (4.5-11.0)
[2018-11-19 09:37] LABS: ANION GAP 9 (8-16); BLOOD UREA NITROGEN 55 MG/DL (7-18); CALCIUM 8.5 MG/DL (8.5-10.1); CHLORIDE 111 MMOL/L (99-107); CREATININE 3.44 MG/DL (0.60-1.10); GLUCOSE 134 MG/DL (70-104); MAGNESIUM 1.2 MG/DL (1.5-2.4); PHOSPHORUS 4.1 MG/DL (2.3-4.5); SODIUM 141 MMOL/L (135-145); TOTAL CARBON DIOXIDE 20.9 MMOL/L (24-32); eGFR 18 ML/MIN
[2018-11-19 10:00] VITALS: BP 113/62
[2018-11-19] MEDS ORDERED: magnesium 4gm in 100ml NS 100 ML IV ONE (16:45)
[2018-11-19 18:00] VITALS: BP 128/66
--- NOTE | 2018-11-19 18:30 | NUR ---
Patient in room [facility]TH[facility] 4007. I have received report from Ashley MATSON and had the opportunity to ask questions and assume patient care.
[2018-11-19] MEDS: calcitriol 0.25mcg capsule PO SCH (21:06)
[2018-11-19 22:00] VITALS: BP 119/65
[2018-11-20] MEDS: aztreonam inj. 500 MG in normal saline 100ml IV soln 100 ML IV SCH ×3 (00:17→16:32)
[2018-11-20] MEDS: HYDROcodone/acetaminophen 10/325mg tab PO PRN ×3 (00:25→19:29)
[2018-11-20 06:00] VITALS: BP 143/100
[2018-11-20 06:11] LABS: BASOPHILS % (AUTO) 0.3 % (0-1); EOSINOPHILS # (AUTO) 0.1 X10'3 (0-0.9); EOSINOPHILS % (AUTO) 0.9 % (0-6); HEMATOCRIT 29.5 % (42.0-52.0); HEMOGLOBIN 9.4 g/dl (14.0-17.9); LYMPHOCYTES # (AUTO) 0.7 X10'3 (1.1-4.8); LYMPHOCYTES % (AUTO) 9.6 % (21-51); MEAN CORPUSCULAR HEMOGLOBIN 29.4 PG (27.0-31.0); MEAN CORPUSCULAR HGB CONC 31.9 g/dL (33.0-36.5); MEAN CORPUSCULAR VOLUME 92.1 FL (78-98); MEAN PLATELET VOLUME 6.7 FL (7.4-10.4); MONOCYTES # (AUTO) 0.5 X10'3 (0-0.9); MONOCYTES % (AUTO) 6.6 % (2-12); NEUTROPHILS # (AUTO) 5.8 X10'3 (1.8-7.7); NEUTROPHILS % (AUTO) 82.6 % (42-75); PLATELET COUNT 212 X10'3 (140-440); RED CELL DISTRIBUTION WIDTH 16.6 % (11.5-14.5)
--- NOTE | 2018-11-20 06:15 | NUR ---
Patient in room [facility]TH[facility] 4007. I have received report from Ivana MATSON and had the opportunity to ask questions and assume patient care.
--- NOTE | 2018-11-20 06:28 | NUR ---
Problems reprioritized. Patient report given, questions answered & plan of care reviewed with Rosalind MATSON.
[2018-11-20 06:30] LABS: ALBUMIN 2.6 G/DL (3.4-5.0); ANION GAP 9 (8-16); BLOOD UREA NITROGEN 57 MG/DL (7-18); BUN/CREATININE RATIO 16.5 (5.4-32.0); CALCIUM 9.1 MG/DL (8.5-10.1); CHLORIDE 110 MMOL/L (99-107); CREATININE 3.46 MG/DL (0.60-1.10); GLUCOSE 90 MG/DL (70-104); MAGNESIUM 2.3 MG/DL (1.5-2.4); PHOSPHORUS 4.6 MG/DL (2.3-4.5); POTASSIUM 4.3 MMOL/L (3.5-5.1); SODIUM 138 MMOL/L (135-145); TOTAL CARBON DIOXIDE 18.9 MMOL/L (24-32); eGFR 18 ML/MIN
[2018-11-20] MEDS: LIPASE/PROTEASE/AMYLASE 4,200 unit CAPSULE.DR PO SCH ×2 (07:52→18:03)
[2018-11-20] MEDS: lactobacillus rhamnosus 10,000 MMU CELLS/CAPSULE PO SCH ×2 (07:52→19:30)
[2018-11-20] MEDS: loratadine 10mg tablet PO SCH (07:52)
[2018-11-20] MEDS: tamsulosin 0.4mg capsule PO SCH (07:53)
[2018-11-20] MEDS: mycophenolate sod SR tablet 180 MG TABLET.DR PO SCH ×2 (07:54→19:30)
[2018-11-20] MEDS: calcium carbonate/vitamin D3 tablet PO SCH ×2 (07:54→19:29)
[2018-11-20] MEDS: prednisone 10mg tablet PO SCH (07:55)
[2018-11-20] MEDS: vitamin D (cholecalciferol) 1,000 unit tablet PO SCH (07:56)
[2018-11-20] MEDS: tacrolimus anhydrous 1mg capsule PO SCH ×2 (07:56→19:29)
[2018-11-20] MEDS: pantoprazole 40mg Tablet.DR PO SCH (07:56)
[2018-11-20] MEDS: multivitamins, therapeutics tablet PO SCH (07:56)
[2018-11-20] MEDS: ROPINIRole 0.25mg tablet PO SCH ×2 (07:56→21:59)
[2018-11-20] MEDS: linezolid 600mg tablet PO SCH ×2 (07:57→19:29)
[2018-11-20] MEDS: heparin, porcine 5000 units/ml vial SQ SCH ×2 (07:57→19:30)
[2018-11-20] MEDS: allopurinol 100mg tablet PO SCH (07:58)
[2018-11-20] MEDS: docusate sod 100mg capsule PO SCH ×2 (08:00→19:30)
[2018-11-20] MEDS: midodrine 5mg tablet PO SCH ×3 (08:00→21:00)
[2018-11-20 10:00] VITALS: BP 112/56
[2018-11-20 13:30] VITALS: BP 110/56
[2018-11-20] MEDS ORDERED: TACR1CAP PO (13:32)
[2018-11-20] MEDS: normal saline 1000ml 1,000 ML IV SCH (16:32)
--- NOTE | 2018-11-20 16:52 | NUR ---
DC orders already in, pt will discharge after the morning dose of abx is complete.
[2018-11-20 18:00] VITALS: BP 117/54
--- NOTE | 2018-11-20 18:10 | NUR ---
Problems reprioritized. Patient report given, questions answered & plan of care reviewed with Marta MATSON.
--- NOTE | 2018-11-20 18:34 | NUR ---
RC'D VERBAL REPORT FROM CHELSI AND ASSUMED CARE OF PATIENT
[2018-11-20] MEDS: calcitriol 0.25mcg capsule PO SCH (21:59)
[2018-11-20 22:00] VITALS: BP 140/71
[2018-11-21] MEDS: aztreonam inj. 500 MG in normal saline 100ml IV soln 100 ML IV SCH ×2 (00:11→07:03)
[2018-11-21] MEDS: HYDROcodone/acetaminophen 10/325mg tab PO PRN (04:00)
--- NOTE | 2018-11-21 05:58 | NUR ---
MEDICATED WITH [facility]CO X2 LAST NIGHT FOR CHRONIC BACK PAIN. PATIENT AWAKE AND "ANXIOUS TO GET OUT OF HERE". PLAN IS FOR AN EARLY DISCHG THIS AM.
[2018-11-21 06:00] VITALS: BP 148/75
[2018-11-21 06:13] LABS: BASOPHILS % (AUTO) 0.3 % (0-1); EOSINOPHILS # (AUTO) 0.1 X10'3 (0-0.9); EOSINOPHILS % (AUTO) 0.9 % (0-6); HEMATOCRIT 27.9 % (42.0-52.0); HEMOGLOBIN 8.8 g/dl (14.0-17.9); LYMPHOCYTES # (AUTO) 0.6 X10'3 (1.1-4.8); MEAN CORPUSCULAR HEMOGLOBIN 29.2 PG (27.0-31.0); MEAN CORPUSCULAR HGB CONC 31.6 g/dL (33.0-36.5); MEAN CORPUSCULAR VOLUME 92.6 FL (78-98); MEAN PLATELET VOLUME 6.5 FL (7.4-10.4); MONOCYTES # (AUTO) 0.5 X10'3 (0-0.9); MONOCYTES % (AUTO) 6.2 % (2-12); NEUTROPHILS # (AUTO) 6.6 X10'3 (1.8-7.7); NEUTROPHILS % (AUTO) 84.6 % (42-75); PLATELET COUNT 201 X10'3 (140-440); RED BLOOD COUNT 3.01 X10'6 (4.70-6.10); RED CELL DISTRIBUTION WIDTH 16.5 % (11.5-14.5); WHITE BLOOD COUNT 7.8 X10'3 (4.5-11.0)
[2018-11-21 06:28] LABS: ALBUMIN 2.5 G/DL (3.4-5.0); ANION GAP 13 (8-16); BLOOD UREA NITROGEN 58 MG/DL (7-18); BUN/CREATININE RATIO 16.2 (5.4-32.0); CALCIUM 8.7 MG/DL (8.5-10.1); CHLORIDE 110 MMOL/L (99-107); CREATININE 3.57 MG/DL (0.60-1.10); GLUCOSE 110 MG/DL (70-104); MAGNESIUM 1.8 MG/DL (1.5-2.4); PHOSPHORUS 3.9 MG/DL (2.3-4.5); POTASSIUM 4.1 MMOL/L (3.5-5.1); SODIUM 140 MMOL/L (135-145); TOTAL CARBON DIOXIDE 17.3 MMOL/L (24-32); eGFR 17 ML/MIN
--- NOTE | 2018-11-21 06:31 | NUR ---
Patient in room [facility]TH[facility] 4007. I have received report from Shavon Huitron RN and had the opportunity to ask questions and assume patient care.
[2018-11-21] MEDS: docusate sod 100mg capsule PO SCH (08:00)
[2018-11-21] MEDS: midodrine 5mg tablet PO SCH (08:00)
[2018-11-21] MEDS: prednisone 10mg tablet PO SCH (08:25)
[2018-11-21] MEDS: lactobacillus rhamnosus 10,000 MMU CELLS/CAPSULE PO SCH (08:25)
[2018-11-21] MEDS: loratadine 10mg tablet PO SCH (08:25)
[2018-11-21] MEDS: tamsulosin 0.4mg capsule PO SCH (08:25)
[2018-11-21] MEDS: mycophenolate sod SR tablet 180 MG TABLET.DR PO SCH (08:25)
[2018-11-21] MEDS: calcium carbonate/vitamin D3 tablet PO SCH (08:25)
[2018-11-21] MEDS: LIPASE/PROTEASE/AMYLASE 4,200 unit CAPSULE.DR PO SCH (08:25)
[2018-11-21] MEDS: ROPINIRole 0.25mg tablet PO SCH (08:26)
[2018-11-21] MEDS: multivitamins, therapeutics tablet PO SCH (08:26)
[2018-11-21] MEDS: linezolid 600mg tablet PO SCH (08:26)
[2018-11-21] MEDS: vitamin D (cholecalciferol) 1,000 unit tablet PO SCH (08:26)
[2018-11-21] MEDS: allopurinol 100mg tablet PO SCH (08:26)
[2018-11-21] MEDS: tacrolimus anhydrous 1mg capsule PO SCH (08:26)
[2018-11-21] MEDS: pantoprazole 40mg Tablet.DR PO SCH (08:26)
[2018-11-21] MEDS: heparin, porcine 5000 units/ml vial SQ SCH (08:27)
--- NOTE | 2018-11-21 08:45 | NUR ---
Reviewed discharge instructions with pt and spouse. Pt verbalized understanding. All of pt's belongings were returned to pt. Pt was wheeled downstairs to be driven home by his spouse. Pt did not express and c/o pain or discomfort. Pt is alert and oriented and in good spirits.
[2018-11-22] MEDS ORDERED: cyanocobalamin 1,000 mcg/ml inj SQ SCH (08:00)
[2018-11-22] MEDS ORDERED: TESTOSTERONE CYPIONATE 200 MG/ML VIAL IM SCH (08:00)
== END 2018-11-21 09:01 | disposition home or self-care (01) | DRG 871 ==
LOC: SUR 3N 14:13 → ORTHO 4S 14:57
PROVIDERS: ADMIT Internal Medicine Critical Care Medicine; ATTEND Internal Medicine Critical Care Medicine
DX: A41.9 Sepsis, unspecified organism (principal); G93.41 Metabolic encephalopathy; N41.0 Acute prostatitis; Z94.0 Kidney transplant status; K50.90 Crohn's disease, unspecified, without complications; N39.0 Urinary tract infection, site not specified; N17.9 Acute kidney failure, unspecified; I95.9 Hypotension, unspecified; M25.551 Pain in right hip; K52.9 Noninfective gastroenteritis and colitis, unspecified; E86.0 Dehydration; E83.42 Hypomagnesemia; E87.6 Hypokalemia; N40.1 Benign prostatic hyperplasia with lower urinary tract symptoms; W18.39XA Other fall on same level, initial encounter; I25.10 Atherosclerotic heart disease of native coronary artery without angina pectoris; N18.3 Chronic kidney disease, stage 3 (moderate); B95.2 Enterococcus as the cause of diseases classified elsewhere; N40.0 Benign prostatic hyperplasia without lower urinary tract symptoms; E86.9 Volume depletion, unspecified; G62.9 Polyneuropathy, unspecified; N52.9 Male erectile dysfunction, unspecified; Z79.899 Other long term (current) drug therapy; Z88.5 Allergy status to narcotic agent; Z88.8 Allergy status to other drugs, medicaments and biological substances; Y93.89 Activity, other specified; Y92.098 Other place in other non-institutional residence as the place of occurrence of the external cause; Y99.8 Other external cause status
CPT/HCPCS: 36415; 71045; 76775; 80048; 80053; 81001; 82728; 83036; 83540; 83550; 83605; 83735; 84100; 84145; 85025; 85610; 85730; 87040; 87070; 87077; 87088; 87186; 94660; 94760; 97110; 97116; 97161; 97530; G0378; J0885; J1644; J2020; J3475; J3480; J3490; J7030; J7507; J7512